=== PATIENT | male | born 1970 | race Caucasian/White ===

== ENCOUNTER 2016-09-30 10:10 | Day surgery (SDC) | payer OTHER ==
[2016-09-29 15:07] LABS: HEMATOCRIT 36.8 % (42.0-52.0); HEMOGLOBIN 11.8 g/dL (14.0-18.0); MCH 24.8 PG (27-31); MCHC 32.1 g/dL (33-37); MCV 77.3 FL (81-99); RBC 4.76 XMIL (4.7-6.1)
[2016-09-29 16:09] LABS: AGAP 18; BUN 9 mg/dL (8-22); CALCIUM 9.2 mg/dL (8.8-10.2); CHLORIDE 91 mmol/L (98-107); COSMO 279; POTASSIUM 3.9 mmol/L (3.5-5.1); SODIUM 132 mmol/L (136-145); TCO2 23 mmol/L (25-35)
[2016-09-30] MEDS ORDERED: LR 1,000 ML ONE ×2 (10:26→15:18)
[2016-09-30] MEDS ORDERED: PEPCID ONE (10:26)
[2016-09-30] MEDS ORDERED: REGLAN ONE (10:26)
[2016-09-30] MEDS ORDERED: KEFZOL 2 GM/D5W 50 ML ONE (10:32)
[2016-09-30] MEDS ORDERED: DIPRIVAN 1% ONE (13:41)
[2016-09-30] MEDS ORDERED: FENTANYL ONE (13:42)
[2016-09-30] MEDS ORDERED: NORCO-10 ONE (14:14)
[2016-09-30] MEDS ORDERED: DILAUDID IV PRN (14:21)
[2016-09-30] MEDS ORDERED: NORCO-10 PO PRN (14:21)
[2016-09-30] MEDS ORDERED: ZOFRAN IV PRN (14:21)
[2016-09-30 14:47] VITALS: BP 122/81
[2016-09-30] MEDS ORDERED: ZOFRAN ONE (15:18)
[2016-09-30] MEDS ORDERED: NEO-SYNEPHRINE ONE (15:18)
[2016-09-30] MEDS ORDERED: XYLOCAINE-MPF 2% ONE (15:18)
--- NOTE | 2016-10-01 11:30 | OPERATIVE NOTE ---
PROCEDURE DATE: 09/30/2016 PREOPERATIVE DIAGNOSES: 1. Osteomyelitis of bilateral feet. 2. Nonhealing diabetic foot ulcers of bilateral feet. POSTOPERATIVE DIAGNOSES: 1. Osteomyelitis of bilateral feet. 2. Nonhealing diabetic foot ulcers of bilateral feet. PROCEDURE: Bilateral ray amputation of 5th toes and metatarsal heads. SURGEON: Yonis Deras MD ANESTHESIA: General. ESTIMATED BLOOD LOSS: 25 mL. COMPLICATIONS: None apparent. SPECIMENS: Fifth toe metatarsal heads bilaterally. FINDINGS: There were nonhealing ulcers that probed to bone at the metatarsal head of the 5th digit bilaterally with surrounding edema and some erythema of the skin. TECHNIQUE: He was brought to the operating room and placed supine on the table. General anesthesia was induced. He was prepped and draped in usual sterile fashion. Beginning on the right side, a curvilinear incision was made around the 5th toe and down the lateral metatarsal shaft. This was carried down into the subcutaneous tissue sharply with 15 blade and with cautery. Periosteal elevator was used to elevate the soft tissue off of the metatarsal shaft and head. I continued dividing all the soft tissue attachments down to the joint capsule of the metatarsophalangeal joint. I then cut the metatarsal shaft with a bone cutter and divided the remaining soft tissue and ligamentous attachments, and removed the toe, skin, and metatarsal head. I then used a rongeur to debride back this metatarsal head a little further and used a rasp to file it down to a smooth edge. We used saline to copiously irrigated out the wound. Cautery was used for hemostasis. The wound was then closed with a combination of simple interrupted and vertical mattress 2-0 nylon sutures. There was mild tension on the closure. I then turned my attention to the left side and performed essentially the same procedure. The ulcer was a little more medial so the incision was more curved medially on the plantar aspect and it was closed with a more moderate degree of tension. A sterile dressing was applied. He was awakened in stable condition and transferred to the recovery room.
== END 2016-09-30 14:56 | disposition home or self-care (01) ==
LOC: OR 10:10
PROVIDERS: ATTEND Surgery
DX: M86.172 Other acute osteomyelitis, left ankle and foot (principal); M86.171 Other acute osteomyelitis, right ankle and foot; E11.621 Type 2 diabetes mellitus with foot ulcer; L97.529 Non-pressure chronic ulcer of other part of left foot with unspecified severity; L97.519 Non-pressure chronic ulcer of other part of right foot with unspecified severity; K21.9 Gastro-esophageal reflux disease without esophagitis; M19.90 Unspecified osteoarthritis, unspecified site
CPT/HCPCS: 80048; 85027; J0690; J2370; J2405; J3010; J7120

== ENCOUNTER 2016-10-13 13:57 | Observation (INO) ==
[2016-10-13] MEDS ORDERED: LR 1,000 ML ONE (14:13)
[2016-10-13] MEDS ORDERED: PEPCID ONE (14:36)
[2016-10-13] MEDS ORDERED: REGLAN ONE (14:36)
[2016-10-13] MEDS ORDERED: KEFZOL 2 GM/D5W 50 ML ONE (14:46)
[2016-10-13 15:01] LABS: BASO% 0.6 % (0.0-0.8); EOS% 2.3 % (0.0-10.0); HEMATOCRIT 36.4 % (42.0-52.0); HEMOGLOBIN 11.9 g/dL (14.0-18.0); IMM GRAN# 0.03 X1000 (0.0-0.04); IMM GRAN% 0.3 % (0.0-0.5); LYMPH# 1.42 X1000 (1.2-3.4); LYMPH% 16.2 % (20.5-51.1); MANUAL DIFF NEEDED? YES; MCH 24.5 PG (27-31); MCHC 32.7 g/dL (33-37); MCV 74.9 FL (81-99); MONO# 0.74 X1000 (0.11-0.59); MONO% 8.5 % (1.7-9.3); MPV 8.9 FL (7.4-10.4); NEUT% 72.1 % (42.2-75.2); PLT 460 X1000 (130-400); RBC 4.86 XMIL (4.7-6.1)
[2016-10-13 15:17] LABS: AGAP 13; BUN 13 mg/dL (8-22); CALCIUM 9.2 mg/dL (8.8-10.2); CHLORIDE 90 mmol/L (98-107); COSMO 265; POTASSIUM 4.5 mmol/L (3.5-5.1); SODIUM 127 mmol/L (136-145); TCO2 24 mmol/L (25-35)
[2016-10-13 16:28] LABS: BANDS 10 % (0-1); EOS 2 % (1-10); LYMPHS 20 % (21-51); MONO 2 % (1-9)
[2016-10-13] MEDS ORDERED: FENTANYL ONE (16:54)
[2016-10-13] MEDS ORDERED: DIPRIVAN 1% ONE (16:57)
[2016-10-13] MEDS: MORPHINE ONE ×5 (17:00→17:25)
[2016-10-13] MEDS ORDERED: XYLOCAINE-MPF 2% ONE (17:19)
[2016-10-13] MEDS ORDERED: ERGOCALCIFEROL 1.25 MG PO SCH (17:36)
[2016-10-13] MEDS ORDERED: BUPRENEX IV PRN (17:36)
[2016-10-13] MEDS ORDERED: HUMULIN R IV ONE (17:36)
[2016-10-13] MEDS: NORCO-10 PO PRN (20:49)
[2016-10-13] MEDS: DAPAGLIFLOZIN PO SCH (20:51)
[2016-10-13] MEDS: KEFZOL 2 GM/D5W 50 ML IV SCH (20:51)
[2016-10-13] MEDS: METFORMIN HCL PO SCH (20:51)
[2016-10-13] MEDS: GLUCOPHAGE XR PO SCH (20:52)
[2016-10-13] MEDS: REQUIP PO SCH (20:53)
[2016-10-13] MEDS ORDERED: GRALISE PO SCH (21:00)
[2016-10-13] MEDS ORDERED: ZANTAC PO SCH (21:00)
[2016-10-13] MEDS ORDERED: CEFAZOLIN SODIUM IV SCH (21:00)
[2016-10-13] MEDS ORDERED: [UNRECOGNIZED DRUG - OTHER] IV SCH (21:00)
[2016-10-13] MEDS ORDERED: NACL IV SCH (21:00)
[2016-10-13] MEDS: PERIDEX MT SCH (23:19)
[2016-10-14] MEDS: NORCO-10 PO PRN ×3 (01:02→10:49)
--- NOTE | 2016-10-14 04:09 | OPERATIVE NOTE ---
PROCEDURE DATE: 10/13/2016 PREOPERATIVE DIAGNOSES: 1. Right foot gangrene. 2. Diabetic foot infection. 3. History of osteomyelitis. 4. Infected surgical wound. POSTOPERATIVE DIAGNOSES: 1. Right foot gangrene. 2. Diabetic foot infection. 3. History of osteomyelitis. 4. Infected surgical wound. PROCEDURE PERFORMED: Debridement of skin, subcutaneous tissue, tendon, and bone of the right foot. SURGEON: Yonis Deras MD. ANESTHESIA: General. ESTIMATED BLOOD LOSS: 5 mL. COMPLICATIONS: None apparent. SPECIMENS: Necrotic and purulent tissue for culture and sensitivity. FINDINGS: He had necrotic skin, subcutaneous fat, and tendon with purulent looking fluid draining out of it. The wound measured 7 x 4 cm. This was the area debrided. TECHNIQUE: He was brought to the operating room and placed supine on the table. General anesthesia was induced. He was prepped and draped in the usual sterile fashion. His nylon sutures were removed from his prior 5th toe amputation. I then used a 10 blade to sharply excise and debride away the necrotic skin and soft tissue, taking away necrotic subcutaneous fat, muscle, and tendon down to the fascia and remaining bone of the 5th metatarsal. Once all the soft tissue was debrided back to healthier bleeding edges, I then debrided back more of the metatarsal with a Nadiya bone cutter as well as a rongeur. This was to get the bone to be tucked underneath the edges of the skin and not sticking out in the wound. I then filed down the edge of the bone so that it was smooth and washed out the wound copiously with saline. Cautery was used for hemostasis. We then packed the wound with Betadine moistened gauze and wrapped his foot with Kerlix gauze and an Evaristo wrap. He tolerated this without apparent complication.
[2016-10-14] MEDS: KEFZOL 2 GM/D5W 50 ML IV SCH ×2 (06:26→14:05)
[2016-10-14] MEDS: PRILOSEC PO SCH ×2 (07:42→10:07)
[2016-10-14] MEDS ORDERED: ASPIRIN PO SCH (09:00)
[2016-10-14] MEDS ORDERED: SYNTHROID PO SCH (09:00)
[2016-10-14] MEDS ORDERED: PATIENT'S OWN MED SUBQ SCH (09:00)
[2016-10-14] MEDS: PERIDEX MT SCH (10:06)
[2016-10-14] MEDS: REQUIP PO SCH (10:07)
[2016-10-14] MEDS: GLUCOPHAGE XR PO SCH (10:08)
[2016-10-14] MEDS: METFORMIN HCL PO SCH (10:09)
[2016-10-14] MEDS: DAPAGLIFLOZIN PO SCH (10:09)
[2016-10-14 11:43] VITALS: BP 110/71
[2016-10-19] MEDS ORDERED: CYANOCOBALAMIN IM SCH (09:00)
== END 2016-10-14 15:28 | disposition home or self-care (01) ==
LOC: OR 13:57 → 4N 17:31
PROVIDERS: ADMIT Surgery; ATTEND Surgery
DX: E11.621 Type 2 diabetes mellitus with foot ulcer (principal); E11.69 Type 2 diabetes mellitus with other specified complication; L97.519 Non-pressure chronic ulcer of other part of right foot with unspecified severity; M86.671 Other chronic osteomyelitis, right ankle and foot; I96 Gangrene, not elsewhere classified; T81.4XXA Infection following a procedure, initial encounter; B96.89 Other specified bacterial agents as the cause of diseases classified elsewhere; I10 Essential (primary) hypertension; E03.9 Hypothyroidism, unspecified; I77.9 Disorder of arteries and arterioles, unspecified; K21.9 Gastro-esophageal reflux disease without esophagitis; J45.909 Unspecified asthma, uncomplicated; G25.81 Restless legs syndrome; M47.812 Spondylosis without myelopathy or radiculopathy, cervical region; Z89.422 Acquired absence of other left toe(s); Z89.421 Acquired absence of other right toe(s); F17.220 Nicotine dependence, chewing tobacco, uncomplicated; E11.9 Type 2 diabetes mellitus without complications; M19.90 Unspecified osteoarthritis, unspecified site; Z86.73 Personal history of transient ischemic attack (TIA), and cerebral infarction without residual deficits; Z79.899 Other long term (current) drug therapy; Z79.82 Long term (current) use of aspirin
CPT/HCPCS: 80048; 82948; 85025; 87070; 87075; 87077; 87205; 94761; 94799; J0690; J2270; J3010; J7120

== ENCOUNTER 2017-05-09 17:50 | Inpatient (IN) ==
[2017-05-09] MEDS ORDERED: NS 1,000 ML IV ONE ×2 (18:22→20:32)
[2017-05-09] MEDS ORDERED: DILAUDID IV ONE ×2 (18:22→19:30)
[2017-05-09] MEDS ORDERED: ZOFRAN IV ONE (18:22)
[2017-05-09 19:02] LABS: BASO% 0.2 % (0.0-0.8); EOS# 0.04 X1000 (0.0-0.7); EOS% 0.9 % (0.0-10.0); HEMATOCRIT 35.5 % (42.0-52.0); HEMOGLOBIN 11.5 g/dL (14.0-18.0); LYMPH# 0.33 X1000 (1.2-3.4); LYMPH% 7.6 % (20.5-51.1); MANUAL DIFF NEEDED? NO; MCH 23.3 PG (27-31); MCHC 32.4 g/dL (33-37); MCV 71.9 FL (81-99); MONO# 0.21 X1000 (0.11-0.59); MONO% 4.8 % (1.7-9.3); MPV 9.5 FL (7.4-10.4); NEUT% 86.5 % (42.2-75.2); PLT 244 X1000 (130-400); RBC 4.94 XMIL (4.7-6.1)
[2017-05-09 19:22] LABS: AGAP 16; ALBUMIN 4.1 g/dL (3.5-5.0); ALKALINE PHOSPHATASE 111 U/L (32-122); BUN 15 mg/dL (8-22); CALCIUM 9.1 mg/dL (8.8-10.2); CHLORIDE 93 mmol/L (98-107); COSMO 276; GOT 22 U/L (10-34); GPT 15 U/L (10-44); LIPASE 22 U/L (13-60); POTASSIUM 4.5 mmol/L (3.5-5.1); SODIUM 133 mmol/L (136-145); TCO2 24 mmol/L (25-35); TOTAL BILIRUBIN 0.41 mg/dL (0.20-1.00); TOTAL PROTEIN 7.6 g/dL (6.3-8.3)
[2017-05-09] MEDS ORDERED: OFIRMEV 1000 MG/ISOTONIC SOLN 1,000 MG/100 ML BOTTLE IV ONE (19:33)
--- NOTE | 2017-05-09 19:55 | Diag Imaging Result Doc PS360 ---
EXAM: CHEST-PORTABLE HISTORY: fever TECHNIQUE: AP portable chest upright at 1952 COMMENT: There is a Port-A-Cath on the right with its tip in the superior vena cava. There is questionable subsegmental atelectasis in the lingula and right middle lobe. This is somewhat different in configuration than on the previous study of 08/09/2016, however previously there was apparently atelectasis in the right middle lobe. There are sternotomy wires which were not present previously. IMPRESSION: Bilateral subsegmental atelectasis as described. Electronically signed by Poncho Patricia 05/09/2017 7:53 PM
[2017-05-09 19:59] LABS: URINE CULTURE NEEDED? NO; URINE MICRO REVIEW NEEDED? NO; URINE SOURCE CLEAN CATCH
[2017-05-09 20:02] LABS: BILIRUBIN URINE NEGATIVE (NEGATIVE); BLOOD URINE NEGATIVE (NEGATIVE); COLOR YELLOW; GLUCOSE URINE >1000 mg/dL (NEGATIVE); LEUKOCYTES URINE NEGATIVE (NEGATIVE); NITRITE URINE NEGATIVE (NEGATIVE); PH URINE 6.5; PROTEIN URINE 30 mg/dL (NEGATIVE); SP GRAVITY URINE 1.025; TURBIDITY URINE CLEAR (CLEAR); UROBILINOGEN URINE NORMAL (NORMAL)
[2017-05-09 20:03] LABS: UR EPITHELIAL CELLS <10 /HPF (<10); URINE BACTERIA NEGATIVE /HPF; URINE RBC <10 /HPF (<10); URINE WBC <10 /HPF (<10)
--- NOTE | 2017-05-09 20:16 | Diag Imaging Result Doc PS360 ---
EXAM: US GB < RUQ (LIMITED) HISTORY: ruq pain TECHNIQUE: Right upper quadrant ultrasound COMMENT: The aorta and inferior vena cava are poorly demonstrated. The pancreas is largely obscured by bowel gas. The gallbladder is clear and nontender. There is no evidence of biliary dilatation the common bile duct measuring less than 6 mm. There is antegrade flow in the portal vein. The liver is otherwise unremarkable in appearance. The right kidney is without evidence of hydronephrosis or mass. There are no abnormal fluid collections. IMPRESSION: No evidence of acute disease. Electronically signed by Poncho Patricia 05/09/2017 8:13 PM
[2017-05-09 20:57] LABS: INR 1.05; PROTIME 11.1 Seconds (9.2-11.7); PTT 27.7 Seconds (22.0-36.0)
--- NOTE | 2017-05-09 21:18 | Diag Imaging Result Doc PS360 ---
EXAM: CT ANGIOGRM/PULMONARY ARTERIES HISTORY: fever TECHNIQUE: CT of the chest with intravenous contrast and pulmonary arterial protocol with reduced radiation dose and 3-D MIPS COMMENT: There are no previous studies. There are no apparent pulmonary arterial filling defects. The thoracic aorta is not distended and there is no evidence of dissection. There is been previous sternotomy. There is no evidence of a bony union in the sternotomy. There are no abnormal fluid collections. There is a fairly large amount of fluid throughout the esophagus. This may indicate reflux. There is minimal subsegmental atelectasis in the lingula and right middle lobe. There is also some subsegmental atelectasis in the posterior costophrenic sulcus of the left lower lobe. No dense consolidation is present. There is no evidence of significant adenopathy. IMPRESSION: No evidence of pulmonary emboli. Minimal atelectasis. Possible gastroesophageal reflux. Electronically signed by Poncho Patricia 05/09/2017 9:16 PM
[2017-05-09] MEDS ORDERED: VANCOMYCIN 1 GM/NS 1 GM/250 ML IVPB IV ONE (21:22)
[2017-05-09] MEDS ORDERED: ZOSYN 3.375 GM in NS 50 ML IV ONE (21:22)
[2017-05-09] MEDS: VANCOMYCIN 1,500 MG in NS 250 ML IV ONE ×2 (21:54→23:53)
[2017-05-09 22:08] LABS: HEMOGLOBIN A1C 10.4 % (4.8-6.0)
[2017-05-09] MEDS ORDERED: REQUIP PO ONE (22:38)
[2017-05-09] MEDS ORDERED: NORCO-7.5 PO PRN (23:22)
[2017-05-09] MEDS ORDERED: ZOFRAN IV PRN (23:22)
[2017-05-09] MEDS ORDERED: TYLENOL PO PRN (23:22)
[2017-05-09] MEDS ORDERED: VENTOLIN HFA INH PRN (23:22)
[2017-05-10] MEDS: NS 1,000 ML IV SCH ×3 (00:01→17:20)
[2017-05-10] MEDS: LOVENOX SUBQ SCH ×2 (00:02→23:08)
[2017-05-10] MEDS: ZOSYN 3.375 GM in NS 50 ML IV SCH ×5 (00:02→23:07)
[2017-05-10 01:00] LABS: CK PROFILE 123 U/L (24-204); HDL 48 mg/dL (35-55); LDL 69 mg/dL; TRIGLYCERIDES 222 mg/dL (39-160); VLDL 44 mg/dL
[2017-05-10] MEDS: LANTUS SUBQ SCH ×2 (03:15→21:06)
[2017-05-10] MEDS: DILANTIN PO SCH ×3 (03:15→20:48)
[2017-05-10] MEDS: GRALISE PO SCH ×2 (03:15→21:04)
[2017-05-10] MEDS: LOPRESSOR PO SCH ×4 (03:16→20:48)
[2017-05-10] MEDS: REQUIP PO SCH ×3 (03:16→20:48)
[2017-05-10] MEDS: CARAFATE PO SCH ×4 (03:17→20:48)
--- NOTE | 2017-05-10 05:17 | EKG Report ---
Test Performed on : 05/09/2017 6:07:50 PM Test Reason : No Order in [employer] Blood Pressure : / mmHG Vent. Rate : 131 BPM Atrial Rate : 131 BPM P-R Int : 136 ms QRS Dur : 088 ms QT Int : 302 ms P-R-T Axes : 049 -36 101 degrees QTc Int : 445 ms Sinus tachycardia. Left axis deviation T wave abnormality, consider lateral ischemia Abnormal ECG When compared with ECG of 20-APR-2016 07:35, No significant change was found Unconfirmed Result
[2017-05-10] MEDS: SYNTHROID PO SCH (06:27)
[2017-05-10] MEDS: PRILOSEC PO SCH (06:27)
[2017-05-10] MEDS: HUMALOG SUBQ SCH ×4 (06:27→21:05)
[2017-05-10 06:30] LABS: HEMATOCRIT 33.4 % (42.0-52.0); HEMOGLOBIN 10.5 g/dL (14.0-18.0); MCH 23.5 PG (27-31); MCHC 31.4 g/dL (33-37); MCV 74.9 FL (81-99); RBC 4.46 XMIL (4.7-6.1)
[2017-05-10 06:54] LABS: AGAP 12; BUN 12 mg/dL (8-22); CALCIUM 7.9 mg/dL (8.8-10.2); CHLORIDE 96 mmol/L (98-107); COSMO 274; POTASSIUM 3.9 mmol/L (3.5-5.1); SODIUM 133 mmol/L (136-145); TCO2 25 mmol/L (25-35)
[2017-05-10] MEDS: KLOR-CON PO SCH (08:49)
[2017-05-10] MEDS: LIPITOR PO SCH (08:50)
[2017-05-10] MEDS: ASPIRIN PO SCH (08:50)
--- NOTE | 2017-05-10 15:50 | Diag Imaging Result Doc PS360 ---
CT ABDOMEN/PELVIS W/O CONTRAST - 05/10/2017 INDICATION: lower abdominal pain TECHNIQUE: A CT dose reduction protocol was used. COMPARISON: Chest CT 05/09/2017 FINDINGS: There are small bilateral nonobstructing renal stones, one in the right kidney and two in the left. These measure up to 4 mm. No hydronephrosis or hydroureter. No bowel obstruction or inflammation. Urinary bladder, prostate, and rectum are normal. There are small fat-containing inguinal hernias bilaterally. There is a small linear hyperdensity in the region of the external genitalia of the penis, between the corporis cavernosa. This measures about 1 cm in length. There is severe calcified vascular disease of the internal iliac artery branches, and also some disease of the common femoral arteries. Bones are intact. IMPRESSION: 1. Bilateral nephrolithiasis. 2. Small fat-containing inguinal hernias. 3. Small linear hyperdensity in the external genitalia of uncertain significance. This appears to dorsal to be a foreign body in the urethra. This may just be a vascular calcification. Electronically signed by Dean Pereira 05/10/2017 3:48 PM
[2017-05-10] MEDS ORDERED: GRALISE PO SCH (21:00)
[2017-05-11] MEDS: CARAFATE PO SCH ×3 (02:52→13:18)
[2017-05-11] MEDS: NS 1,000 ML IV SCH ×2 (02:53→11:38)
[2017-05-11] MEDS: ZOSYN 3.375 GM in NS 50 ML IV SCH ×2 (04:30→11:30)
[2017-05-11] MEDS: HUMALOG SUBQ SCH ×2 (06:05→11:31)
[2017-05-11] MEDS: PRILOSEC PO SCH (06:06)
[2017-05-11] MEDS: SYNTHROID PO SCH (06:06)
[2017-05-11 07:59] VITALS: BP 109/64
[2017-05-11] MEDS: REQUIP PO SCH (09:21)
[2017-05-11] MEDS: LOPRESSOR PO SCH (09:21)
[2017-05-11] MEDS: LIPITOR PO SCH (09:22)
[2017-05-11] MEDS: ASPIRIN PO SCH (09:22)
[2017-05-11] MEDS: KLOR-CON PO SCH (09:22)
[2017-05-11] MEDS: DILANTIN PO SCH (09:28)
[2017-05-11 12:56] LABS: BASO% 0.4 % (0.0-0.8); EOS# 0.09 X1000 (0.0-0.7); HEMATOCRIT 30.9 % (42.0-52.0); HEMOGLOBIN 9.8 g/dL (14.0-18.0); LYMPH% 21.9 % (20.5-51.1); MANUAL DIFF NEEDED? YES; MCH 23.1 PG (27-31); MCHC 31.7 g/dL (33-37); MCV 72.9 FL (81-99); MONO% 8.8 % (1.7-9.3); MPV 8.8 FL (7.4-10.4); NEUT% 66.9 % (42.2-75.2); PLT 188 X1000 (130-400); RBC 4.24 XMIL (4.7-6.1)
[2017-05-11 13:21] LABS: BANDS 6 % (0-1); EOS 2 % (1-10); HYPOCHROM 1+; LYMPHS 16 % (21-51); MONO 16 % (1-9)
[2017-05-11 13:23] LABS: AGAP 10; BUN 6 mg/dL (8-22); CALCIUM 8.2 mg/dL (8.8-10.2); CHLORIDE 97 mmol/L (98-107); COSMO 269; POTASSIUM 3.9 mmol/L (3.5-5.1); SODIUM 133 mmol/L (136-145); TCO2 26 mmol/L (25-35)
[2017-05-11] MEDS ORDERED: FLUZONE QUAD 2017-2018 SYRINGE IM ONE (14:06)
--- NOTE | 2017-05-11 18:17 | ECHO REPORT ---
ORDER DATE: 05/10/2017 INDICATION: Hypertension, coronary artery disease, diabetes. FINDINGS: 1. Right atrium appears normal in size at 3.9 cm. 2. Mild tricuspid regurgitation. 3. Normal RV size and systolic function. 4. No significant pulmonic insufficiency. 5. Moderate left atrial enlargement with a volume index of 35. 6. No mitral valve prolapse. Mild mitral regurgitation. 7. Normal LV size, end-diastolic dimension of 5.6. Mild left ventricular hypertrophy with a posterior and interventricular septal wall thickness 1.2 and 1.1 cm respectively. Normal LV systolic function, estimated EF of 55% with normal wall motion. 8. The aortic valve opens well. No evidence of stenosis or insufficiency. 9. The aorta appears normal in visualized segments. 10. No pericardial effusion seen. cc: MD Bruno Yu CRNP
[2017-05-17] MEDS ORDERED: CYANOCOBALAMIN IM SCH (09:00)
== END 2017-05-11 15:26 | disposition home health service (06) ==
LOC: ED 17:50 → 3N 17:50 → OBSVTOIN 23:02 → SUATTDRO 23:02
PROVIDERS: ATTEND Internal Medicine